=== PATIENT | male | born 1965 | race Caucasian/White ===

== ENCOUNTER 2016-11-28 12:19 | Emergency (ER) | payer BC, MEDICARE, MEDICAID ==
[~2016-11-28] VITALS: Ht 182.9 cm; Wt 70.3 kg
[~2016-11-28 12:19] MED LIST: ACE1030 IN; ACE250T GT; ACE650RS GT; ALBU0.084 NEB; BIS10RS PR; BUPR100T71 GT; CHOL100079 GT; CRAN400C GT; DIAZ-104 GT; ESCI10TA GT; FAM20T GT; FERR200T3 GT; GLYC1TAB GT; LORA-622 GT; MENTOIN9 EX; MOMLQ GT; MULTLIQ36 GT; MUPI2OIN10 TOP; PRO10T GT
[2016-11-28] MEDS ORDERED: LIDOCAINE 1% HCL (LOCAL ANESTH.) INJ 20ML MDV ONE (15:35)
[2016-11-28 18:10] VITALS: BP 89/44
== END 2016-11-28 18:43 ==
LOC: ER 12:19 → EDBD 12:19 → ER 18:43
DX: S01.01XA Laceration without foreign body of scalp, initial encounter (principal); W07.XXXA Fall from chair, initial encounter; Y93.89 Activity, other specified; Y99.8 Other external cause status; Y92.89 Other specified places as the place of occurrence of the external cause; Z79.899 Other long term (current) drug therapy
CPT/HCPCS: 12002; 70450; 94002; 94761; J2001

== ENCOUNTER 2017-07-02 19:58 | Emergency (ER) | payer OTHER, MEDICARE, MEDICAID ==
[~2017-07-02] VITALS: Ht 152.4 cm; Wt 72.6 kg
[2017-07-02 20:17] LABS: Allen Test Modified; Base Excess -1.6 mmol/L (-2.0-2.0); Blood 02Sat 98.6 % (96-100); Blood COHb 0.3 % (0.5-1.5); Blood MetHb 0.4 % (0.0-1.5); HCO3 24.3 mmol/L (22-26.0); HHb 1.4 % (0.0-5.0); MODE VENT - SIMV; O2Hb 97.9 % (94.0-97.0); PCO2 45.2 mmHg (35.0-45.0); PCO2(T) 45.2 mmHg (35.0-45.0); PO2 190.2 mmHg (80.0-100.0); PO2(T) 190.2 mmHg (80.0-100.0); Sample Type Arterial; pH 7.348 (7.350-7.450)
[2017-07-02 20:59] LABS: Basophils # (auto) 0.1 uL; Basophils % (auto) 1.2 % (0.0-2.0); Eosinophils # (auto) 0.4 uL; Eosinophils % (auto) 5.4 % (0.0-7.0); Hematocrit 44.6 % (41.0-53.0); Hemoglobin 14.8 g/dL (13.5-17.5); Lymphocytes # (auto) 2.2 uL; Mean Corpuscular Hemoglobin 29.2 pg (28.0-32.0); Mean Corpuscular Hgb Conc. 33.1 g/dL (32.0-36.0); Mean Corpuscular Volume 88.2 fL (80.0-100.0); Mean Platelet Volume 9.4 fL (6.9-10.8); Monocytes # (auto) 0.7 uL; Monocytes % (auto) 9.4 % (0.0-12.0); Neutrophils # (auto) 4.6 uL; Nucleated Red Blood Cells % 0.1 %; Platelet Count (auto) 280 10^3/uL (140-450); Red Cell Distribution Width 13.2 % (11.8-14.3)
[2017-07-02 21:18] LABS: Amylase 66 U/L (25-115)
[2017-07-02 21:24] LABS: Albumin 4.1 g/dL (3.4-5.0); BUN/Creatinine Ratio 21.1; Bilirubin, Total 0.8 mg/dL (0.2-1.0); Potassium 3.2 mmol/L (3.5-5.1); Total Protein 8.6 g/dL (6.4-8.2)
[2017-07-02 21:29] LABS: INR 1.05 (0.9-1.15); Partial Thromboplastin Time 29.8 sec (22.64-33.71); Prothrombin Time 11.4 sec (9.37-12.3)
[2017-07-02] MEDS ORDERED: GASTROGRAFIN 30 ML SOL ONE (22:10)
[2017-07-02 23:20] VITALS: BP 121/77
[2017-07-03] MEDS ORDERED: POTASSIUM CHL 10% (20 MEQ/15ML) 15ml ORAL SOLN GT ONE
[2017-07-03] MEDS ORDERED: POTASSIUM CHL 10% (20 MEQ/15ML) 15ml ORAL SOLN ONE (00:16)
== END 2017-07-03 00:53 | disposition home or self-care (01) ==
LOC: EDBD 19:58 → ER 20:13
DX: K94.23 Gastrostomy malfunction (principal); E87.6 Hypokalemia; J45.909 Unspecified asthma, uncomplicated; K21.9 Gastro-esophageal reflux disease without esophagitis; I10 Essential (primary) hypertension; Z79.899 Other long term (current) drug therapy; Z43.1 Encounter for attention to gastrostomy
CPT/HCPCS: 36415; 36600; 43760; 74000; 80053; 82150; 82805; 83690; 85025; 85610; 85730; 87070; 87077; 87186; 87205; 99285; Q9963; 94002